=== PATIENT | male | born 1950 ===

== ENCOUNTER 2017-01-21 08:33 | Outpatient (CLI) | payer BC ==
[2017-01-21 09:20] LABS: Anion Gap 18 mmol/L; Blood Urea Nitrogen 18 mg/dL (9-20); Calcium 8.5 mg/dL (8.4-10.2); Carbon Dioxide 24 mmol/L (22-30); Chloride 105.5 mmol/L (98-107); Cholesterol 233 mg/dL (50-199); Glucose 108 mg/dL (75-100); HDL Cholesterol 57 mg/dL (40-59); LDL Cholesterol,Direct 122 mg/dL (50-130); Sodium 143 mmol/L (137-145); Triglycerides 271 mg/dL (2-149)
[2017-01-24 20:51] LABS: TESTOSTERONE FREE 50.1 pg/mL (35.0-155.0)
== END 2017-01-21 08:34 | disposition home or self-care (01) ==
LOC: LAB 08:33
DX: Z12.5 Encounter for screening for malignant neoplasm of prostate (principal); I10 Essential (primary) hypertension; N52.9 Male erectile dysfunction, unspecified; E78.5 Hyperlipidemia, unspecified
CPT/HCPCS: 36415; 80048; 80061; 84154; 84402